=== PATIENT | female | born 1980 | race Caucasian/White ===

== ENCOUNTER 2016-12-28 14:04 | Emergency (ER) | payer MEDICAID ==
[~2016-12-28] VITALS: Ht 167.6 cm; Wt 62.5 kg
[2016-12-28 14:19] VITALS: Ht 167.6 cm; Wt 62.5 kg
--- NOTE | 2016-12-28 16:14 | RADRPT ---
PROCEDURE: Obstetrical ultrasound . CLINICAL INDICATION: pelvic pain , demise TECHNIQUE: Multiple sonographic images of the pelvis were obtained utilizing a transabdominal and endovaginal technique. The images were reviewed on a PACS workstation. COMPARISON: None. FINDINGS: There is an intrauterine present with the crown-rump length measuring 1.7 cm and the gesta tional sac measuring 3.3 cm which corresponds to a calculated gestational age of 8 weeks and 2 day. No heart tones are identified. There is no abnormally enlarged yolk sac. There is a 1.4 x 1.1 cm complex hypoechoic mass in the posterior uterus, suspicious for fibroid. How ever a second failed gestational sac is not completely excluded. The right ovary measures 3.5 x 2.3 x 2.1 cm. The left ovary measures 4.2 x 1.7 cm. There is a 1.9 cm simple cyst in the left ovary. There is normal Doppler flow in the ovaries. No significant free fluid is present within the pelvis. RPTAT: AA IMPRESSION: Intrauterine at 8 weeks and 2 day. No heart tones noted, consistent with demise. Complex hypoechoic mass in the posterior uterus may represent a fibroid versus less likely a second failed gestational sac. Correlation with HCG levels is recommended. .David Pichardo MD, MD Date Time Electronically viewed and signed by .David Pichardo MD, MD on 12/28/2016 16:14 .S/
--- NOTE | 2016-12-28 16:27 | ERD ---
ER Documentation Chief Complaint Date/Time DATE: 12/28/16 TIME: 16:26 Chief Complaint sent from clinic unable to detect fht, 9 weeks HPI This 36-year-old female presents with request by OB for a pelvic ultrasound for no heart tones noted in the clinic. She is 9 weeks by dates. She has pain or bleeding or fevers or vomiting or shortness breath or chest pain. She is a G3 para 0 . ROS All systems reviewed and are negative except as per history of present illness. PMhx/Soc Medical and Surgical Hx: pt denies Medical Hx, pt denies Surgical Hx History of Surgery: No Anesthesia Reaction: No Hx Neurological Disorder: No Hx Respiratory Disorders: No Hx Cardiac Disorders: No Hx Psychiatric Problems: No Hx Miscellaneous Medical Probl: No Hx Alcohol Use: No Hx Substance Use: No Hx Tobacco Use: No Smoking Status: Never smoker Physical Exam Vitals Vital Signs Date Time Temp Pulse Resp B/P Pulse Ox O2 Delivery O2 Flow Rate FiO2 12/28/16 14:19 98.3 110 18 145/89 99 Physical Exam Const: [] Alert, not ill-appearing. Head: Atraumatic Eyes: Normal Conjunctiva ENT: Normal External Ears, Nose and Mouth. Neck: Full range of motion..~ No meningismus. Resp: Clear to auscultation bilaterally Cardio: Regular rate and rhythm, no murmurs Abd: Soft, non tender, non distended. Normal bowel sounds Skin: No petechiae or rashes Back: No midline or flank tenderness Ext: No cyanosis, or edema Neur: Awake and alert Psych: Normal Mood and Affect Procedures/MDM Pelvic ultrasound shows approximately 8 week 2 day without heart tones and a abnormally enlarged yolk sac consistent with demise. Results will be given the patient complains of was counseled on results. Patient is advised to follow-up with OB this week return for fevers, vomiting, pain, bleeding, new worsening symptoms as directed after instructions. No current signs or symptoms to suggest ectopic , appendicitis, additional complications or cause of presenting complaints. Departure Diagnosis: Primary Impression: demise Condition: Stable Patient Instructions: Missed Miscarriage Additional Instructions: Ultrasound confirms similar findings by OB in clinic of no heart tones. Follow-up with OB this week for further evaluation and treatment. BRUNA ASHER MD December 28, 2016 16:27
== END 2016-12-28 17:18 | disposition home or self-care (01) ==
LOC: FTE 14:04
DX: O02.1 Missed abortion (principal)
CPT/HCPCS: 76801; 76817